=== PATIENT | male | born 1980 | race Caucasian/White ===

== ENCOUNTER 2021-05-13 08:28 | Emergency (ER) | payer BC, OTHER ==
[~2021-05-13] VITALS: Ht 160 cm; Wt 54.0 kg
[~2021-05-13 08:28] MED LIST: CLEOCIN HCL300 MG PO; LEVAQUIN500 MG PO; MINOCYCLINE HC100 M1 PO
[2021-05-13] MEDS ORDERED: KETOROLAC TROMETHAMINE 30 MG/ML VIAL IV STA (08:35)
[2021-05-13] MEDS ORDERED: FAMOTIDINE 20 MG/2 ML VIAL IV STA (08:35)
[2021-05-13] MEDS ORDERED: DONNATAL/LIDOCAINE/MAALOX 30 ML SUSP PO ONE ×2 (08:45→10:00)
[2021-05-13 08:55] LABS: BASOPHILS % 1.1 % (0.0-1.0); EOSINOPHILS % 0.3 % (0.0-6.0); HEMATOCRIT 42.7 % (38.2-49.6); HEMOGLOBIN 14.1 g/dL (14.0-18.0); LYMPHOCYTES # (AUTO) 0.9 (1.0-3.2); LYMPHOCYTES % 23.8 % (18.0-39.1); MEAN CORPUSCULAR HEMOGLOBIN 27.2 pg (28-32); MEAN CORPUSCULAR VOLUME 82.4 fL (81-99); MONOCYTES # (AUTO) 0.3 (0.2-0.8); MONOCYTES % 9.4 % (4.4-11.3); NEUTROPHILS # (AUTO) 2.4 (2.1-6.9); NEUTROPHILS % 65.4 % (38.7-80.0); PLATELET COUNT 239 x10e3/uL (140-360); RED BLOOD COUNT 5.18 x10e6/uL (4.3-5.7); RED CELL DISTRIBUTION WIDTH 12.2 % (11.7-14.4)
[2021-05-13] MEDS ORDERED: IOPAMIDOL 370 MG/ML 200 ML INFUS..BTL INJ ONE (08:57)
[2021-05-13] MEDS ORDERED: SODIUM CHLORIDE 0.9% 50ML 50 ML ONE (08:57)
[2021-05-13 09:11] LABS: ALBUMIN 4.5 g/dL (3.5-5.0); ALBUMIN/GLOBULIN RATIO 1.6 (0.8-2.0); ANION GAP 13.9 mmol/L (8-16); CALCIUM 9.1 mg/dL (8.4-10.2); CREATININE, SERUM 0.77 mg/dL (0.72-1.25); POTASSIUM 3.9 mmol/L (3.5-5.1)
[2021-05-13] MEDS ORDERED: PANTOPRAZOLE SO40 MG PO (10:23)
== END 2021-05-13 11:15 | disposition home or self-care (01) ==
LOC: ER 08:33
DX: R10.12 Left upper quadrant pain (principal); J45.909 Unspecified asthma, uncomplicated
CPT/HCPCS: 36415; 74177; 80053; 83690; 85025; 99284; J1885; Q9967